=== PATIENT | male | born 1995 | race African-American/Black ===

== ENCOUNTER 2016-12-01 21:26 | Emergency (ER) | payer OTHER ==
--- NOTE | ~2016-12-01 | CR169 ---
[facility]. [facility] A Service of [facility] & [facility] RADIOLOGY TEXT RESULTS PATIENT: ZACARIAS VALENTIN LOCATION: SED : [birth year] UNIT #: [id number] AGE: [address]: NOELLE WALTON SEX: M ORDER DR: [id number] [place] [id number] MR#: [id number] Acc #: [id number] NAME: ZACARIAS VALENTIN : 1995 SEX: M STUDY DATE/TIME: 12/01/2016 21:59 UNIT: SED ROOM: STUDY DESCRIPTION: CR Knee 2 Views Lt Attending Physician: Noelle Walton Ordering Physician: Lane Ba M.D. Primary Care Physician: Yosef Thompson Jr., M.D. MEDICAL IMAGING REPORT This report is preliminary unless electronic signature is present. EXAM 2 views left knee INDICATION Anterior left knee pain started 2 weeks ago. FINDINGS AP and lateral projection of the knee shows smooth articular anatomy without indication of fracture or dislocation at the major weight-bearing surface of the knee. There is no indication of radiopaque foreign body about the knee surface or joint effusion. IMPRESSION Negative. Dictated by... Aga Bauer M.D. THIS IS AN ELECTRONICALLY VERIFIED REPORT Aga Bauer M.D. at 12/02/2016 11:00 AM AFF/aa TD: 12/02/2016 08:21 JOB #: [id number] MEDICAL IMAGING REPORT Page 1 of 1
[~2016-12-01 21:26] MED LIST: ZITHROMAX1 G/PKT PO
[2016-12-01] MEDS ORDERED: SINGULAIR (21:43)
[2016-12-01] MEDS ORDERED: CHILDREN'S CLARI5 MG PO (21:43)
[2016-12-01] MEDS ORDERED: SYMBICORT80 INH (21:43)
== END 2016-12-01 22:35 | disposition home or self-care (01) ==
LOC: SED 21:26
DX: M25.562 Pain in left knee (principal); G89.29 Other chronic pain; J45.909 Unspecified asthma, uncomplicated
CPT/HCPCS: 29530; 73560; 99283